=== PATIENT | female | born 1975 | race Caucasian/White ===

== ENCOUNTER → 2016-12-13 | Outpatient (CLI) | payer BC | LOC: LAB.NP 16:38 | PROVIDERS: ATTEND Family Medicine | DX: N30.00 Acute cystitis without hematuria (principal) ==

== ENCOUNTER → 2017-05-01 | Outpatient (CLI) | payer BC ==
--- NOTE | 2017-05-01 14:41 | MAM ---
History: Well woman exam. Date of exam: 05/01/2017 Services provided: Bilateral full field digital screening mammography. CAD, the images were reviewed with R2 computer aided detection. FINDINGS: Glandular tissue is near completely fatty involuted. Comparison with 2012 exam. No dominant mass, architectural distortion or clustered microcalcification. IMPRESSION: Benign exam Recommendation: Routine annual mammography BIRAD CATEGORY: 2 BENIGN Electronically signed by: Lizette Red MD 05/01/2017 2:41 PM CDT Workstation: [id number]
== END | disposition home or self-care (01) ==
LOC: MAMMO 08:37
PROVIDERS: ATTEND Family Medicine
DX: Z12.31 Encounter for screening mammogram for malignant neoplasm of breast (principal); D51.3 Other dietary vitamin B12 deficiency anemia; E55.9 Vitamin D deficiency, unspecified
CPT/HCPCS: 82306; 82607; G0202

== ENCOUNTER → 2018-05-13 | Outpatient (CLI) | payer BC ==
--- NOTE | 2018-05-15 16:03 | MAM ---
EXAM DESCRIPTION: 3D Screening BILATERAL : Digital Mammography. CLINICAL HISTORY: 42 years Female SCREENING . No complaints. No family history of breast cancer. Childbirth. Postmenopausal. Currently on HRT.. COMPARISON: 2-D digital screening bilateral study 05/01/2017. Report from prior examination also reviewed. TECHNIQUE: Bilateral CC and MLO projection full-field images, 3-D tomosynthesis digital mammographic technique. CAD not utilized. FINDINGS: The breast parenchymal density pattern is: Almost entirely fatty. No skin thickening or nipple retraction. Bilateral solitary microcalcifications. No new focal, stellate mass or density, focal asymmetry , and no suspicious microcalcifications bilaterally. Stable mammograms compared to prior study, taking into account differences in mammographic technique. IMPRESSION: BI-RADS CATEGORY: 2 - BENIGN FINDINGS. FOLLOW UP: Routine digital bilateral screening, one year interval from April 2018. Written communication explaining the IMPRESSION and follow-up, will be mailed to the patient and referring health care provider. According to the [employer], yearly mammograms are recommended starting at age 40 and continuing as long as a woman is in good health. Any breast change noted on a breast self-exam should be reported promptly to the patient's healthcare provider. Breast MRI is recommended for women with an approximately 20-25% or greater lifetime risk of breast cancer, including women with a strong family history of breast or ovarian cancer and women who have been treated for Hodgkin's disease. A negative mammographic report should not delay tissue diagnosis in patients with significant clinical history or physical findings. Extremely dense breast tissue limits the sensitivity of digital mammography. Electronically signed by: Sotero Aranda MD 05/15/2018 4:01 PM CDT
== END ==
LOC: MAMMO 16:00
PROVIDERS: ATTEND Family Medicine
DX: Z12.31 Encounter for screening mammogram for malignant neoplasm of breast (principal)

== ENCOUNTER → 2018-05-27 | Outpatient (CLI) | payer BC | LOC: GMAL 12:54 | PROVIDERS: ATTEND Family Medicine | DX: Z00.00 Encounter for general adult medical examination without abnormal findings (principal) ==

== ENCOUNTER 2018-09-16 05:50 | Day surgery (SDC) | payer BC ==
--- NOTE | 2018-09-13 16:50 | SSS ---
CHIEF COMPLAINT: Guaiac-positive stools and need for screening colonoscopy. HISTORY OF PRESENT ILLNESS: Ms. Fletcher is a 43 year-old female who presented to my office for routine followup. It was noted that she had guaiac-positive stools. She denies any other symptoms referable to her bowels other than constipation and heartburn. She occasionally has to take a laxative for her constipation. She denies any obvious gross blood in her stools, however. PAST MEDICAL HISTORY: 1. Urge urinary incontinence helped somewhat with Detrol 2. History of depression. 3. Moderate nasal allergies. PAST OBSTETRICAL HISTORY: She is 4 para 2 with 2 miscarriages both in 1994. PAST SURGICAL HISTORY: 1. Hysterectomy and bilateral salpingo-oophorectomy done laparoscopically with lysis of adhesions by Dr. De La Rosa. 2. section times 2 in 1993 and 1996. CURRENT MEDICATIONS: 1. Effexor XR. 2. Estradiol. 3. Vitamin D3. ALLERGIES: SSRIs ONLY IN THAT SHE HAD A SIGNIFICANT SIDE EFFECT OF SEXUAL DYSFUNCTION WITH THEM. FAMILY HISTORY: Father's medical history is unknown. Mother has a history of hypertension and hyperlipidemia. She has 1 half brother, Preet, and 3 half sisters, Carrie, Steffanie and Swapna. She has 2 sons. She has a paternal grandmother with breast cancer. Maternal grandmother with a history of coronary artery disease, hypertension and hyperlipidemia and benign breast biopsies. She has a paternal great grandmother with a history of diabetes. SOCIAL HISTORY: She is times 1. She has 2 children. She has never smoked and drinks alcohol only infrequently. REVIEW OF SYSTEMS: Negative except as per History of Present Illness. PHYSICAL EXAMINATION: VITAL SIGNS: Weight 213, blood pressure 120/80, pulse 60. GENERAL: She is a well-developed, well-nourished female in no acute distress. HEENT: Unremarkable. NECK: Supple. CHEST: Lungs are clear. CARDIOVASCULAR: Regular rate and rhythm without appreciable murmurs. ABDOMEN: Soft, non-tender. RECTAL: Rectal exam in my office was positive for guaiac. SKIN: Without rashes. ASSESSMENT: 1. Need for screening colonoscopy. 2. History of guaiac positive stools. PLAN: Colonoscopy on 09/16/18. #[id number] [facility]
[2018-09-16] MEDS ORDERED: LACTATED RINGERS 1,000 ML ONE (06:51)
[2018-09-16] MEDS ORDERED: MIDAZOLAM INJ 2 MG/2 ML VIAL ONE (07:28)
[2018-09-16] MEDS ORDERED: fentaNYL CITRATE INJ 50 MCG/ML AMP ONE (07:28)
[2018-09-16] MEDS ORDERED: LACTATED RINGERS 1,000 ML BAG IV ONE (07:40)
[2018-09-16 08:14] VITALS: TEMP 97.7
--- NOTE | 2018-09-16 09:21 | OP ---
DATE OF PROCEDURE: 09/16/18 PREOPERATIVE DIAGNOSIS: 1. Need for screening colonoscopy. 2. Guaiac-positive stool. POSTOPERATIVE DIAGNOSIS: 1. Need for screening colonoscopy. 2. Guaiac-positive stool. 3. Normal colonoscopy to the cecum. 4. Tight anal sphincter that was likely the source of her guaiac-positive stool during her well woman exam. PROCEDURE: 1. Colonoscopy. SURGEON: Rodney Rice MD. ESTIMATED BLOOD LOSS: None. COMPLICATIONS: No immediate complications. ANESTHESIA: Versed 2 mg, fentanyl 1 mL, Propofol 400 mg administered via Rick Rincon CRNA. TECHNIQUE: After informed consent was obtained from the patient, the patient was taken to the Endoscopy Suite and placed in the left lateral decubitus position. Difficulty was noted with her existing IV, so a new one was placed. She was then positioned. Rectal exam revealed a tight anal sphincter, but no other abnormalities. After adequate sedation was obtained, the colonoscope was advanced into the patient's rectum and up through the sigmoid, descending, transverse and ascending colon to the level of the cecum. The usual cecal landmarks were identified. The cecum was photographed. The terminal ileum could not be entered despite multiple attempts. The colonoscope was then slowly withdrawn. The overall bowel prep was good. There were some areas of liquid stool, however. Effort was made to suction out as much of this as possible. The escobar were viewed in 360 degree fashion. No abnormalities were noted throughout the entire colon. There were no diverticula. The scope was retroflexed upon itself in the rectum and grade 1 internal hemorrhoids were noted. The colonoscope was then unretroflexed and air was suctioned out of the patient's rectum. The colonoscope was removed from the patient. The patient tolerated the procedure well and was waking up at the end of the procedure. She was taken back to the recovery area in good condition. PLAN: Repeat colonoscopy in 8 to 10 years. #[id number] [facility]
[2018-09-16 09:52] VITALS: BP 125/85; O2SAT 98
[2018-09-16] MEDS ORDERED: LIDOCAINE 1% 10 ML VIAL INJ ONE (10:00)
[2018-09-16] MEDS ORDERED: PROPOFOL 200 MG/20 ML VIAL IV ONE (10:00)
== END 2018-09-16 09:35 | disposition home or self-care (01) ==
LOC: AMB 05:50
PROVIDERS: ATTEND Family Medicine
DX: R19.5 Other fecal abnormalities (principal); K64.0 First degree hemorrhoids; F32.9 Major depressive disorder, single episode, unspecified; N39.41 Urge incontinence; Z88.8 Allergy status to other drugs, medicaments and biological substances; Z79.899 Other long term (current) drug therapy
CPT/HCPCS: 00811; 45378; J2250; J3010; J3490; J7120

== ENCOUNTER → 2019-06-05 | Outpatient (CLI) | payer BC ==
--- NOTE | 2019-06-05 11:46 | MAM ---
EXAM DESCRIPTION: 3D Screening BILATERAL : Digital Mammography. CLINICAL HISTORY: 43 years Female ANNUAL SCREENING . No complaints. No personal or family history of breast cancer. Childbirth. Postmenopausal 10/years. Currently on HRT. Lifetime risk of developing breast cancer (Tyrer-Cuzick model)(%): 8.8. COMPARISON: Bilateral screening digital breast tomosynthesis 05/13/2018. TECHNIQUE: Bilateral CC and MLO projection full-field images, digital tomosynthesis mammographic technique. Bilateral digital 2-D full-field MLO images. CAD not available for tomosynthesis or 2-D images. . Note: Lateral fold on right breast tomosynthesis on one sequence and lateral rotation of the nipple on the second sequence. Region of interest still visualized and diagnostic. FINDINGS: The breast parenchymal density pattern is: Scattered areas of fibroglandular density. No skin thickening or nipple retraction. Small calcifications bilaterally. Focal asymmetry retroareolar left breast and lateral right breast are stable. No new focal, stellate mass or density, focal asymmetry , and no suspicious microcalcifications bilaterally. Stable mammograms compared to prior study. IMPRESSION: Benign exam. BIRAD CATEGORY: 2 BENIGN FINDINGS. RECOMMENDATIONS: FOLLOW UP: Routine digital bilateral mammographic screening, one year interval from May 2019. Written communication explaining the IMPRESSION and follow-up, will be mailed to the patient and referring health care provider. According to the [employer], yearly mammograms are recommended starting at age 40 and continuing as long as a woman is in good health. Any breast change noted on a breast self-exam should be reported promptly to the patient's healthcare provider. Breast MRI is recommended for women with an approximately 20-25% or greater lifetime risk of breast cancer, including women with a strong family history of breast or ovarian cancer and women who have been treated for Hodgkin's disease. A negative mammographic report should not delay tissue diagnosis in patients with significant clinical history or physical findings. Extremely dense breast tissue limits the sensitivity of digital mammography. Electronically signed by: Sotero Aranda MD 06/05/2019 11:43 AM CDT
== END ==
LOC: MAMMO 08:01
PROVIDERS: ATTEND Family Medicine
DX: Z12.31 Encounter for screening mammogram for malignant neoplasm of breast (principal); Z00.00 Encounter for general adult medical examination without abnormal findings

== ENCOUNTER → 2019-06-22 | Outpatient (CLI) | payer BC | LOC: SL 20:30 | PROVIDERS: ATTEND Family Medicine | DX: G47.33 Obstructive sleep apnea (adult) (pediatric) (principal) ==